=== PATIENT | male | born 2000 | race Two or more races ===

== ENCOUNTER 2024-03-13 17:54 | Emergency (ER) | payer OTHER ==
[~2024-03-13] VITALS: Ht 167.6 cm; Wt 68.9 kg
--- NOTE | 2024-03-13 18:38 | ED.PDOC ---
History of Present Illness HPI Comments 24 M with N/V/D LUQ abdominal pain that started yesterday. 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 No signigicant PMH. Pain is worse with leaning to the left. No blood in stool or vomiting. He states he is a little short of breath. Chief Complaint: Flu like Time Seen by MD: 18:03 Primary Care Provider: DR. CORONEL Allergies: Coded Allergies: Penicillins (Verified Allergy, Unknown, 03/13/24) Home Meds Active Scripts Ondansetron Odt 4MG Tab (ZOFRAN PO) 4 Mg Tb, 4 MG PO Q8HPRN PRN for 3 Days, #9 TAB ODT TAB-DISSOLVE IN MOUTH, THEN SWALLOW Prov:JENNIFER MORRIS MD 03/13/24 Oseltamivir Phosphate (Tamiflu) 75 Mg Cap, 1 CAP PO BID, #10 CAP Prov:JENNIFER MORRIS MD 03/13/24 Mode of Arrival: Ambulatory Review of Systems: REVIEW OF SYSTEMS: No fever, no chills, or fatigue HEENT: No sore throat, no earache, no congestion, no neck pain. Cardiac: No chest pain. No palpitations. Lungs: No shortness of breath, no cough. GI: Positive abdominal pain, nausea, vomiting and diarrhea. : No dysuria, frequency, or urgency. No hematuria. Musculoskeletal: No joint pain , no joint swelling, no extremity edema. Skin: No rash, no itching. Neuro: No headache, no dizziness, no weakness Vital Signs Vital Signs Date Time Temp Pulse Resp B/P (MAP) Pulse Ox O2 Delivery O2 Flow Rate FiO2 03/13/24 18:56 98.9 03/13/24 18:05 69 18 119/94 (102) 98 Physical Exam General: Awake, alert and oriented. No acute distress. Skin: Skin in warm, dry and intact without rashes or lesions. HEENT: The head is normocephalic and atraumatic. Conjunctivae are clear without exudates or hemorrhage. Sclera is non-icteric. Neck: Normal range of motion. No JVD. Cardiac: Regular rate Respiratory: No signs of respiratory distress. No Stridor. Abdominal: Abdomen is soft, mild LUQ tenderness. No guarding or rigidity. Bowel sounds are present and normoactive in all four quadrants. Extremities: Upper and lower extremities are atraumatic in appearance without tenderness or deformity. Neurological: The patient is awake, alert and oriented to person, place, and time with normal speech. Speech is clear. There is no facial asymmetry. Psychiatric: Appropriate mood and affect. Good judgement and insight. No visual or auditory hallucinations. No suicidal or homicidal ideation. Was a procedure done? Was a procedure done?: No Differential Dx Considerations may include: Differential diagnoses considered include: Gastroenteritis, viral syndrome, bowel obstruction, peptic ulcer disease, pneumonia, appendicitis, diverticulit is, gastritis, other. X-Ray, Labs, Meds, VS Vital Signs Date Time Temp Pulse Resp B/P (MAP) Pulse Ox O2 Delivery O2 Flow Rate FiO2 03/13/24 18:56 98.9 03/13/24 18:05 98.1 69 18 119/94 (102) 98 Lab Test 03/13/24 18:57 Range/Units Influenza Type A Antigen Positive Negative Influenza Type B Antigen Negative Negative SARS-CoV-2 Antigen (Rapid) Negative NEGATIVE Current Medications Medications (Trade) Dose Ordered Sig/Andrew Route Start Time Stop Time Status Last Admin Ondansetron HCl (Zofran Po) 4 mg ONCE ONCE PO 03/13/24 18:45 03/13/24 18:46 DC 03/13/24 18:54 Tramadol HCl (Ultram) 50 mg ONCE ONCE PO 03/13/24 18:45 03/13/24 18:46 DC 03/13/24 18:54 Acetaminophen (Tylenol Tablet) 650 mg ONCE ONCE PO 03/13/24 18:45 03/13/24 18:46 DC 03/13/24 18:56 Al Hydrox/Mg Hydrox/Simethicone (Maalox Plus) 30 ml ONCE ONCE PO 03/13/24 18:45 03/13/24 18:46 DC 03/13/24 18:53 Lidocaine HCl (Xylocaine 2% Viscous) 10 ml ONCE ONCE PO 03/13/24 18:45 03/13/24 18:46 DC 03/13/24 18:53 Time of 1ST Reevaluation: 21:57 Reevaluation 1ST: Improved Patient Education/Counseling: Diagnosis, Treatment, Prognosis, Need For Follow Up Family Education/Counseling: No Family Present Departure 1 Departure Time of Disposition: 21:40 Impression: Primary Impression: Abdominal pain Additional Impression: Influenza A Disposition: HOME / SELF CARE / HOMELESS Condition: Stable Additional Instructions: ED DISCHARGE INSTRUCTIONS Instructions: Please read all instructions provided in this packet carefully. Although you have been discharged from the Emergency Department, this does not mean that you have a "clean bill of health". No definitive diagnosis for your symptoms has been made today. It is possible that you are in the process of developing a serious illness. This is why you must return to the ED without fail if any new or worsening symptoms (especially if your symptoms include chest pain, trouble breathing, worsening abdominal pain, you stop passing gas or stop having bowel movements, fever, headache, confusion, trouble seeing, or trouble walking) It is also very important that you see a primary care doctor within the next 3-5 days to follow up. If you are unable to get an appointment, return to the ED for re-evaluation. Abdominal Pain: Care Instructions Overview Abdominal pain has many possible causes. Some aren't serious and get better on their own in a few days. Others need more testing and treatment. If your pain continues or gets worse, you need to be rechecked and may need more tests to find out what is wrong. You may need surgery to correct the problem. Don't ignore new symptoms, such as fever, nausea and vomiting, urination problems, pain that gets worse, and dizziness. These may be signs of a more s erious problem. If you are not getting better, you may need more tests or treatment. The doctor has checked you carefully, but problems can develop later. If you notice any problems or new symptoms, get medical treatment right away. Follow-up care is a infante part of your treatment and safety. Be sure to make and go to all appointments, and call your doctor if you are having problems. It's also a good idea to know your test results and keep a list of the medicines you take. How can you care for yourself at home? Rest until you feel better. To prevent dehydration, drink plenty of fluids. Choose water and other clear liquids until you feel better. If you have kidney, heart, or liver disease and have to limit fluids, talk with your doctor before you increase the amount of fluids you drink. When you feel like eating, start with small amounts. Do not have alcohol, caffeine, or spicy, hot, or high-fat foods for a day or two. Avoid anti-inflammatory medicines such as aspirin, ibuprofen (Advil, Motrin), and naproxen (Aleve). These can cause stomach upset. Talk to your doctor if you take daily aspirin for another health problem. When should you call for help? Call 911 anytime you think you may need emergency care. For example, call if: You passed out (lost consciousness). You pass maroon or very bloody stools. You vomit blood or what looks like coffee grounds. You have severe belly pain. Call your doctor now or seek immediate medical care if: Your pain gets worse, especially if it becomes focused in one area of your b jem. You have a new or higher fever. Your stools are black and look like tar, or they have streaks of blood. You have unexpected vaginal bleeding. You have symptoms of a urinary tract infection. These may include: Pain when you urinate. Urinating more often than usual. Blood in your urine. You are dizzy or lightheaded, or you feel like you may faint. Watch closely for changes in your health, and be sure to contact your doctor if: You are not getting better as expected. Credits for Abdominal Pain: Care Instructions Current as of: January 19, 2023 Author: [employer] [facility], [facility] Staff Clinical Review Board All [facility] education is reviewed by a team that includes physicians, nurses, advanced practitioners, registered dieticians, and other healthcare prof essionals. Influenza (Flu): Care Instructions Influenza (flu) is an infection in the lungs and breathing passages. It is ca used by the influenza virus. There are different strains, or types, of the flu virus from year to year. Unlike the common cold, the flu comes on suddenly and the symptoms can be more severe. These symptoms include a cough, congestion, fever, chills, fatigue, aches, and pains. These symptoms may last for a few weeks. Although the flu can make you feel very sick, it usually doesn't cause serious health problems. Home treatment is usually all you need for flu symptoms. But your doctor may prescribe antiviral medicine to prevent other health problems, such as pneumonia, from developing. The risk of other health problems from the flu is highest for young children (under 2), older adults (over 65), women, and people with long-term health conditions. Follow-up care is a infante part of your treatment and safety. Be sure to make and go to all appointments, and call your doctor if you are having problems. It's also a good idea to know your test results and keep a list of the medicines you take. How can you care for yourself at home? Get plenty of rest. Drink plenty of fluids. If you have to limit fluids because of a health problem, talk with your doctor before you increase the amount of fluids you drink. Take an [id number] pain medicine if needed, such as acetaminophen (Tylenol), ibuprofen (Advil, Motrin), or naproxen (Aleve), to relieve fever, headache, and muscle aches. Be safe with medicines. Read and follow all instructions on the label. No one younger than 20 should take aspirin. It has been linked to Danita syndrome, a serious illness. Take any prescribed medicine exactly as directed. Do not smoke. Smoking can make the flu worse. If you need help quitting, talk to your doctor about stop-smoking programs and medicines. These can increase your chances of quitting for good. If the skin around your nose and lips becomes sore, put some petroleum jelly (such as Vaseline) on the area. To ease coughing: Suck on cough drops or plain, hard candy. Try an lhed-qea-pqntudw cough or cold medicine. Read and follow all instructions on the label. Raise your head at night with an extra pillow. This may help you rest if coughing keeps you awake. To avoid spreading the flu Wash your hands regularly, and keep your hands away from your face. Stay home from school, work, and other public places until you are feeling better and your fever has been gone for at least 24 hours. The fever needs to have gone away on its own without the help of medicine. Ask people living with you to talk to their doctors about preventing the flu. They may get antiviral medicine to keep from getting the flu from you. To prevent the flu in the future, get the flu vaccine every fall. Encourage people living with you to get the vaccine. Cover your mouth when you cough or sneeze. If you can, cough or sneeze into the bend of your elbow, not your hands. When should you call for help? Call 911 anytime you think you may need emergency care. For example, call if: You have severe trouble breathing. You have a seizure. Call your doctor now or seek immediate medical care if: You have trouble breathing. You have a fever with a stiff neck or a severe headache. You have pain or pressure in your chest or belly. You have a fever or cough that returns after getting better. You feel very sleepy, dizzy, or confused. You are not urinating. You have severe muscle pain. You have severe weakness, or you are unsteady. You have medical conditions that are getting worse. Watch closely for changes in your health, and be sure to contact your doctor if: You do not get better as expected. You are having a problem with your medicine. e-Prescriptions Ondansetron Odt 4MG Tab (ZOFRAN PO) 4 Mg Tb 4 MG PO Q8HPRN PRN for 3 Days, #9 TAB ODT TAB-DISSOLVE IN MOUTH, THEN SWALLOW Prov: JENNIFER MORRIS MD 03/13/24 Oseltamivir Phosphate (Tamiflu) 75 Mg Cap 1 CAP PO BID, #10 CAP Prov: JENNIFER MORRIS MD 03/13/24 Comments [age] year old man with abdominal pain, diarrhea influenza a positive. Patient is well-appearing, nontoxic. Abdominal exam benign. Patient declined laboratory studies. Patient's symptoms improved during the ED observation. V ital signs stable. Patient is felt stable for discharge home. Patient advised to follow up with primary care provider promptly and return to the emergency department with any new, worsening or concerning symptoms. Extensive evaluation was performed in attempt to identify or rule out: (See differential diagnosis section) The following tests were ordered, and results were reviewed by me: (See diagnostic results section) The following test were independently interpreted by me: N/A I reviewed and agreed with the following test results read by other providers: N/A I reviewed the following notes from the pt's past medical encounters: (None available at this time) Additional information was gathered from interviewing the following independent historians: N/A Discussion of management or test interpretation with external physician/other qualified health behavioral health care coordinator: N/A Addressed an acute or chronic illness that poses a threat to life or bodily function: abdominal pain Decision regarding hospitalization or escalation of hospital level of care: Risks and benefits of admission for further treatment of patient's condition was considered however due to patient's stable condition patient will be discharged to follow up closely or return to care for worsening of condition or inability to follow up. Critical Care Note Critical Care Time?: No Stability Stability form required: JENNIFER Larsen MD Mar 13, 2024 18:38
[2024-03-13] MEDS: LIDOCAINE VISCOUS 2% 15ML UD PO ONE (18:53)
[2024-03-13] MEDS: MAALOX PLUS or MAALOX 30 ML PO ONE (18:53)
[2024-03-13] MEDS: traMADol HCL 50 MG TAB PO ONE (18:54)
[2024-03-13] MEDS: ONDANSETRON ODT 4 MG TAB PO ONE (18:54)
[2024-03-13] MEDS: ACETAMINOPHEN 325 MG TAB PO ONE (18:56)
[2024-03-13 20:59] LABS: COVID19 ANTIGEN SOFIA FIA NEGATIVE (NEGATIVE)
[2024-03-13 21:14] LABS: Rapid Influenza A Positive (Negative); Rapid Influenza B Negative (Negative)
[2024-03-13] MEDS ORDERED: ZOFR4T PO (21:45)
[2024-03-13] MEDS ORDERED: OSEL75CA5 PO (21:45)
[2024-03-13 23:15] VITALS: BP 141/83; PULSE 78; RESP 18; TEMP 97.3; O2SAT 98
== END 2024-03-13 23:24 | disposition home or self-care (01) ==
LOC: ER 17:54
DX: J10.1 Influenza due to other identified influenza virus with other respiratory manifestations (principal); R10.12 Left upper quadrant pain; Z20.822 Contact with and (suspected) exposure to COVID-19; Z79.899 Other long term (current) drug therapy; Z88.0 Allergy status to penicillin
CPT/HCPCS: 36415; 87426; 87804; 99284; Q0162